=== PATIENT | male | born 1975 | race Caucasian/White ===

== ENCOUNTER 2020-06-29 10:12 | Inpatient (IN) | payer MEDICAID ==
[~2020-06-29] VITALS: Ht 175.3 cm; Wt 114.0 kg
[2020-06-29] VITALS (15 sets, daily range): BP systolic 138–155; BP diastolic 76–101
[2020-06-29] MEDS ORDERED: ondansetron/PF 4mg/2ml inj IV ONE (10:35)
[2020-06-29] MEDS ORDERED: normal saline 1000ML IV soln IVB ONE (10:35)
[2020-06-29] MEDS ORDERED: morphine 4 MG/ML inj SYRINge IV ONE (10:35)
--- NOTE | 2020-06-29 11:07 | NUR ---
PATIENT DOES NOT WANT NARCOTICS. HE HAS 6 YEARS OF RECOVERY. DISCUSSED WITH ZACH DYE. CHARLINE HOLD OFF ON PAIN MEDS UNTIL CT SCAN RESULTED
--- NOTE | 2020-06-29 11:09 | NUR ---
ZACH HEWITT WANT TO HOLD ON CHANGE THE MORPHINE TO TORADOL .WILL GIVE MEDS PER ZACH CORNELIUS.
[2020-06-29 12:08] LABS: ALANINE AMINOTRANSFERASE 67 U/L (12-78); ALBUMIN 4.5 G/DL (3.4-5.0); ALBUMIN/GLOBULIN RATIO 0.9 (1.1-1.5); ALKALINE PHOSPHATASE 101 IU/L (46-116); ANION GAP 11 (8-16); ASPARTATE AMINO TRANSFERASE 30 U/L (10-37); BILIRUBIN,TOTAL 1.4 MG/DL (0.1-1.0); BLOOD UREA NITROGEN 12 MG/DL (7-18); BUN/CREATININE RATIO 15.4 (5.4-32.0); CALCIUM 9.6 MG/DL (8.5-10.1); CHLORIDE 98 MMOL/L (99-107); CREATININE 0.78 MG/DL (0.60-1.10); GLUCOSE 110 MG/DL (70-104); LIPASE 54 U/L (73-393); POTASSIUM 3.9 MMOL/L (3.5-5.1); SODIUM 135 MMOL/L (135-145); TOTAL CARBON DIOXIDE 26.5 MMOL/L (24-32); TOTAL PROTEIN 9.5 G/DL (6.4-8.2); eGFR > 90 ML/MIN
--- NOTE | 2020-06-29 12:19 | NUR ---
plant and maintenance technician at bedside .pt in pain jodie garcia aware ,want to wait for morphine inj.
--- NOTE | 2020-06-29 12:35 | NUR ---
CLARIFIED WITH MARCELINA REGARDING PAIN MGT PER MARCELINA NO TORODOL NEED MORPHINE ,PT GOING FOR SX.
--- NOTE | 2020-06-29 12:54 | NUR ---
PATIENT IS A DIIFICULT IV START/STICK. I CALLED LAB AND LAB ONLY HAD ENOUGH BLOOD TO RUN A CHEMISTRY. I SPOKE TO ZACH DYE REGARDING LABS. I KAMINI LABS FROM THE IV THAT I STARTED IN HIS RIGHT HAND WHICH NEEDED A SLIGHT PULL AWAY FROM PATIENT AT THE HUB TO DRAW.
[2020-06-29 13:05] LABS: BASOPHILS # (AUTO) 0.1 X10'3 (0-0.2); BASOPHILS % (AUTO) 0.6 % (0-1); EOSINOPHILS % (AUTO) 0.1 % (0-6); HEMATOCRIT 44.3 % (42.0-52.0); HEMOGLOBIN 15.2 g/dl (14.0-17.9); LYMPHOCYTES # (AUTO) 1.7 X10'3 (1.1-4.8); MEAN CORPUSCULAR HEMOGLOBIN 30.8 PG (27.0-31.0); MEAN CORPUSCULAR HGB CONC 34.2 g/dL (33.0-36.5); MEAN CORPUSCULAR VOLUME 90.2 FL (78-98); MEAN PLATELET VOLUME 7.4 FL (7.4-10.4); MONOCYTES # (AUTO) 1.1 X10'3 (0-0.9); MONOCYTES % (AUTO) 6.5 % (2-12); NEUTROPHILS % (AUTO) 82.8 % (42-75); PLATELET COUNT 238 X10'3 (140-440); RED BLOOD COUNT 4.92 X10'6 (4.70-6.10); RED CELL DISTRIBUTION WIDTH 12.8 % (11.5-14.5); WHITE BLOOD COUNT 16.9 X10'3 (4.5-11.0)
[2020-06-29 13:08] LABS: CLARITY,URINE CLEAR (Clear); COLOR,URINE YELLOW (Yellow); GLUCOSE, URINE NEGATIVE (Neg); KETONES,URINE NEGATIVE (Neg); LEUKOCYTE ESTERASE ,URINE NEGATIVE (Neg); NITRITES, URINE NEGATIVE (Neg); OCCULT BLOOD,URINE NEGATIVE (Neg); PH,URINE 6.5 (4.8-8.0); PROTEIN,URINE 30 mg/dl (Neg)
[2020-06-29 13:09] LABS: UA COLLECTION TYPE VOIDED
[2020-06-29] MEDS ORDERED: piperacillin/tazo 3.375gm/50ml 50 ML IV ONE (13:10)
[2020-06-29 13:15] LABS: BACTERIA,URINE NONE SEEN /HPF (Neg); RBC,URINE 0-2 /HPF (0-2); WBC,URINE NONE SEEN /HPF (0-4)
[2020-06-29 13:16] LABS: MUCUS STRANDS FEW /LPF (Neg); SQUAMOUS EPITHELIAL CELL,UR NONE SEEN /LPF (FEW)
[2020-06-29] MEDS ORDERED: NO HOME MEDS (13:19)
[2020-06-29] MEDS ORDERED: ondansetron/PF 4mg/2ml inj IV PRN ×3 (13:55→18:50)
[2020-06-29] MEDS ORDERED: labetalol 20mg/4ml (5mg/ml) syringe IV PRN (13:55)
[2020-06-29] MEDS ORDERED: acetaminophen 1,000mg/100ml IV 100 ML IV PRN (13:55)
[2020-06-29] MEDS ORDERED: morphine 2 MG/ML inj. syringe IV PRN ×3 (13:55→14:40)
[2020-06-29] MEDS ORDERED: hydrALAZINE 20mg/ml inj. IV PRN (13:55)
[2020-06-29] MEDS ORDERED: proCHLORperazine 10 MG/2 ml inj IV PRN (13:55)
[2020-06-29] MEDS ORDERED: morphine 4 MG/ML inj SYRINge IV PRN (13:55)
[2020-06-29] MEDS ORDERED: BUPIVAcaine/PF 2.5 mg/ml (0.25%) 30ml vial ONE (13:55)
[2020-06-29] MEDS ORDERED: ringers solution, lacted 1,000 ML IV SCH (13:55)
[2020-06-29] MEDS ORDERED: meperidine/PF 25mg/ml syringe IV PRN ×3 (13:55)
[2020-06-29] MEDS ORDERED: cloNIDine 0.1 MG/24 HOUR patch (7 day patch) TD ONE (14:25)
--- NOTE | 2020-06-29 14:33 | NUR ---
PLACED CLONODINE PAATH ON LEFT SHOULDER FOR BP OF 188/102, WILL CONTINUE TO MONITOR, PT SLEEPING IN NO APPARENT DISTRESS
--- NOTE | 2020-06-29 14:35 | NUR ---
called lab to process type and screen and coags
[2020-06-29] MEDS ORDERED: magnesium hydroxide 30ml (MOM) UD suspension PO PRN (14:40)
[2020-06-29] MEDS ORDERED: acetaminophen 650mg rectal suppository RC PRN (14:40)
[2020-06-29] MEDS ORDERED: acetaminophen 325mg tablet PO PRN ×2 (14:40)
[2020-06-29] MEDS ORDERED: bisacodyl 10mg suppository rectal RC PRN (14:40)
[2020-06-29] MEDS ORDERED: potassium CL 10mEq/100ml bag 100 ML IV PRN ×2 (14:40)
[2020-06-29] MEDS ORDERED: magnesium 4gm in 100ml NS 100 ML IV PRN (14:40)
[2020-06-29] MEDS ORDERED: magnesium Cl slow-release 64mg tablet PO PRN (14:40)
[2020-06-29] MEDS ORDERED: HYDROcodone/acetaminophen 10/325mg tab PO PRN ×2 (14:40→18:50)
[2020-06-29] MEDS ORDERED: diphenhydrAMINE 25mg capsule PO PRN (14:40)
[2020-06-29] MEDS ORDERED: potassium Cl 20 mEq SR tablet PO PRN ×2 (14:40)
[2020-06-29] MEDS ORDERED: magnesium 2GM in 50ml NS 50 ML IV PRN (14:40)
[2020-06-29] MEDS ORDERED: HYDROcodone/acetaminophen 5mg/325mg tablet PO PRN (14:40)
[2020-06-29] MEDS ORDERED: mag hydrox/Alum hydrox/simeth 30ml oral suspension PO PRN (14:40)
[2020-06-29 14:53] LABS: PRE OP PROTIME 10.7 SECONDS (9.0-12.0)
[2020-06-29 15:12] LABS: HEMOGLOBIN A1C 5.7 % (4.5-6.2)
[2020-06-29] MEDS: normal saline 1000ml 1,000 ML IV SCH ×2 (15:20→20:11)
[2020-06-29] MEDS ORDERED: INDOCYANINE GREEN 25 MG/10 ML VIAL IV ONE (15:25)
[2020-06-29] MEDS: piperacillin/tazo 3.375gm/50ml 50 ML IV SCH (16:00)
[2020-06-29] MEDS ORDERED: sevoflurane 250ml liquid IH ONE (16:50)
[2020-06-29] MEDS ORDERED: famotidine/PF 10 mg/ml inj IV ONE (16:58)
[2020-06-29] MEDS ORDERED: midazolam 2 mg/2 ml injection ONE (17:03)
[2020-06-29] MEDS ORDERED: fentaNYL /PF 50mcg/ml 5ml ampule ONE (18:10)
[2020-06-29] MEDS ORDERED: ceFOXitin 1000 MG inj ONE ×2 (18:10)
[2020-06-29] MEDS ORDERED: ondansetron/PF 4mg/2ml inj ONE (18:10)
[2020-06-29] MEDS ORDERED: LIDOcaine 2% (20mg/ml) 5ml vial ONE (18:10)
[2020-06-29] MEDS ORDERED: dexamethasone sod phosphate 4mg/ml inj. ONE (18:10)
[2020-06-29] MEDS ORDERED: rocuronium 10mg/ml inj IV ONE ×2 (18:10)
[2020-06-29] MEDS ORDERED: propofol inj 20 ML IV ONE (18:10)
[2020-06-29] MEDS ORDERED: glycopyrrolate 0.2mg/ml inj ONE (18:29)
[2020-06-29] MEDS ORDERED: neostigmine methylsulfate 1 MG/ML 10ml vial ONE (18:29)
[2020-06-29] MEDS ORDERED: morphine 10mg/ml inj. ONE (18:48)
--- NOTE | 2020-06-29 18:51 | NUR ---
RECEIVED FROM OR VIA BED ACCOMPANIED BY ANESTHESIOLOGIST DR BOWLING, REPORT GIVEN. PT DROWSY BUT AROUSES WITH NO COMPLAINT OF PAIN. 218 GAUGE PIV R UA PATENT AND RUNNING NS AT 100 ML/HR. LG BANDAID X4 TO ABD CDI, FRANK DRAIN RLQ ABD TO SUCTION WITH SMALL AMOUNT OF SS DRAINAGE, ABD SOFT. LOPEZ, PPULSES PALPABLE, BRISK CAP REFILL, SKIN PINK AND WARM, VSS, SCDS APPLIED, RESTING COMFORTABLY.
[2020-06-29] MEDS: K and/or MAG REPLACEMENT MC SCH (20:00)
--- NOTE | 2020-06-29 20:00 | NUR ---
Patient in room [facility]. I have received report from disease education specialist Dot and had the opportunity to ask questions and assume patient care. Pt snoring, 02 via NC at 2L, postop VS started, delgado cordero with lap sites and FRANK to right w/ SS drainage. Addendum: 06/29/20 at 2201 by Julienne Farrell RN Amended: Links added.
--- NOTE | 2020-06-29 20:11 | NUR ---
TRANSPORTED VIA BED ACCOMPANIED BY MYSELF, REPORT GIVEN. PT DROWSY BUT AROUSES WITH NO COMPLAINT OF PAIN. 18 GAUGE PIV R UA PATENT AND RUNNING NS AT 100 ML/HR. LG BANDAID X4 TO ABD CDI, FRANK DRAIN RLQ ABD TO SUCTION WITH SMALL AMOUNT OF SS DRAINAGE, ABD SOFT. LOPEZ, PPULSES PALPABLE, BRISK CAP REFILL, SKIN PINK AND WARM, VSS, SCDS APPLIED, RESTING COMFORTABLY. LEFT IN CARE OF ROSANNE GARG.
[2020-06-30] VITALS: BP_SYST 130; BP_SYST 140; BP_DIAS 75; BP_DIAS 86
[2020-06-30] MEDS: heparin, porcine 5000 units/ml vial SQ SCH ×3 (00:14→19:22)
[2020-06-30] MEDS: ceFOXitin inj 1,000 MG in normal saline 100ml IV soln 100 ML IV SCH ×2 (00:16→07:58)
[2020-06-30] MEDS: piperacillin/tazo 3.375gm/50ml 50 ML IV SCH ×3 (01:44→17:09)
[2020-06-30 04:00] VITALS: BP 128/82
[2020-06-30 07:00] VITALS: BP 128/75
--- NOTE | 2020-06-30 07:23 | NUR ---
Patient in room [facility]. I have received report from Julienne GARG and had the opportunity to ask questions and assume patient care.
[2020-06-30 07:31] LABS: BASOPHILS % (AUTO) 0.2 % (0-1); EOSINOPHILS % (AUTO) 0 % (0-6); HEMATOCRIT 48.2 % (42.0-52.0); HEMOGLOBIN 16.6 g/dl (14.0-17.9); LYMPHOCYTES # (AUTO) 1.1 X10'3 (1.1-4.8); LYMPHOCYTES % (AUTO) 5.9 % (21-51); MEAN CORPUSCULAR HEMOGLOBIN 31.6 PG (27.0-31.0); MEAN CORPUSCULAR HGB CONC 34.3 g/dL (33.0-36.5); MEAN CORPUSCULAR VOLUME 91.9 FL (78-98); MEAN PLATELET VOLUME 7.9 FL (7.4-10.4); MONOCYTES # (AUTO) 1.3 X10'3 (0-0.9); MONOCYTES % (AUTO) 6.9 % (2-12); NEUTROPHILS # (AUTO) 16.5 X10'3 (1.8-7.7); PLATELET COUNT 193 X10'3 (140-440); RED BLOOD COUNT 5.25 X10'6 (4.70-6.10); RED CELL DISTRIBUTION WIDTH 12.8 % (11.5-14.5)
[2020-06-30 07:40] LABS: ALANINE AMINOTRANSFERASE 68 U/L (12-78); ALBUMIN 3.4 G/DL (3.4-5.0); ALBUMIN/GLOBULIN RATIO 0.8 (1.1-1.5); ALKALINE PHOSPHATASE 80 IU/L (46-116); ANION GAP 7 (8-16); ASPARTATE AMINO TRANSFERASE 36 U/L (10-37); BILIRUBIN,TOTAL 2.3 MG/DL (0.1-1.0); BLOOD UREA NITROGEN 18 MG/DL (7-18); BUN/CREATININE RATIO 19.8 (5.4-32.0); CALCIUM 8.4 MG/DL (8.5-10.1); CHLORIDE 102 MMOL/L (99-107); CHOLESTEROL 156 MG/DL (0-200); CREATININE 0.91 MG/DL (0.60-1.10); GLUCOSE 131 MG/DL (70-104); HDL CHOLESTEROL 80 MG/DL (35-60); LDL CHOLESTEROL 82 MG/DL (50-100); MAGNESIUM 2.1 MG/DL (1.5-2.4); PHOSPHORUS 3.6 MG/DL (2.3-4.5); POTASSIUM 5.1 MMOL/L (3.5-5.1); SODIUM 135 MMOL/L (135-145); TOTAL CARBON DIOXIDE 25.8 MMOL/L (24-32); TOTAL PROTEIN 7.7 G/DL (6.4-8.2); TRIGLYCERIDES 46 MG/DL (20-135); eGFR 90 ML/MIN
[2020-06-30] MEDS: K and/or MAG REPLACEMENT MC SCH ×2 (07:59→20:00)
[2020-06-30] MEDS ORDERED: pantoprazole 40 MG vial IV ONE (10:20)
[2020-06-30] MEDS: normal saline 1000ml 1,000 ML IV SCH ×2 (10:20→19:27)
[2020-06-30 12:10] VITALS: BP 127/76
[2020-06-30 13:04] LABS: CLARITY,URINE CLEAR (Clear); COLOR,URINE YELLOW (Yellow); GLUCOSE, URINE NEGATIVE (Neg); KETONES,URINE NEGATIVE (Neg); LEUKOCYTE ESTERASE ,URINE NEGATIVE (Neg); NITRITES, URINE NEGATIVE (Neg); OCCULT BLOOD,URINE NEGATIVE (Neg); PH,URINE 6.5 (4.8-8.0); PROTEIN,URINE NEGATIVE (Neg); UA COLLECTION TYPE CLN CATCH MIDSTREAM; UROBILINOGEN,URINE 0.2 E.U/dL (0.2-1.0)
[2020-06-30 13:17] LABS: URINE AMPHETAMINE SCREEN POSITIVE (Neg); URINE BARBITUATE SCREEN NEGATIVE (Neg); URINE BENZODIAZEPINES SCREEN POSITIVE (Neg); URINE CANNABINOID SCREEN NEGATIVE (Neg); URINE COCAINE SCREEN NEGATIVE (Neg); URINE METHADONE SCREEN NEGATIVE (Neg); URINE OPIATE SCREEN POSITIVE (Neg); URINE PHENCYCLIDINE SCREEN NEGATIVE (Neg)
[2020-06-30 18:30] VITALS: BP 119/65
--- NOTE | 2020-06-30 18:36 | NUR ---
Problems reprioritized. Patient report given, questions answered & plan of care reviewed with Russel GARG.
--- NOTE | 2020-06-30 18:43 | NUR ---
Patient in room [facility]. I have received report from BRITANY Jackson and had the opportunity to ask questions and assume patient care.
[2020-06-30] MEDS: lactobacillus rhamnosus 10,000 MMU CELLS/CAPSULE PO SCH (19:22)
[2020-07-01] VITALS: BP 138/77
[2020-07-01] MEDS: piperacillin/tazo 3.375gm/50ml 50 ML IV SCH ×2 (00:32→07:49)
[2020-07-01] MEDS: normal saline 1000ml 1,000 ML IV SCH (04:41)
[2020-07-01 05:49] LABS: BASOPHILS % (AUTO) 0.4 % (0-1); EOSINOPHILS # (AUTO) 0.1 X10'3 (0-0.9); HEMATOCRIT 41.6 % (42.0-52.0); HEMOGLOBIN 14.1 g/dl (14.0-17.9); LYMPHOCYTES # (AUTO) 2.3 X10'3 (1.1-4.8); LYMPHOCYTES % (AUTO) 25.3 % (21-51); MEAN CORPUSCULAR HEMOGLOBIN 31.1 PG (27.0-31.0); MEAN CORPUSCULAR HGB CONC 33.9 g/dL (33.0-36.5); MEAN CORPUSCULAR VOLUME 91.7 FL (78-98); MEAN PLATELET VOLUME 7.9 FL (7.4-10.4); MONOCYTES # (AUTO) 0.8 X10'3 (0-0.9); MONOCYTES % (AUTO) 8.7 % (2-12); NEUTROPHILS # (AUTO) 5.8 X10'3 (1.8-7.7); NEUTROPHILS % (AUTO) 64.6 % (42-75); PLATELET COUNT 208 X10'3 (140-440); RED BLOOD COUNT 4.54 X10'6 (4.70-6.10); RED CELL DISTRIBUTION WIDTH 13.4 % (11.5-14.5); WHITE BLOOD COUNT 9.1 X10'3 (4.5-11.0)
[2020-07-01 06:01] LABS: ALANINE AMINOTRANSFERASE 60 U/L (12-78); ALBUMIN 2.7 G/DL (3.4-5.0); ALBUMIN/GLOBULIN RATIO 0.7 (1.1-1.5); ALKALINE PHOSPHATASE 60 IU/L (46-116); ANION GAP 6 (8-16); ASPARTATE AMINO TRANSFERASE 28 U/L (10-37); BILIRUBIN,TOTAL 1.4 MG/DL (0.1-1.0); BLOOD UREA NITROGEN 17 MG/DL (7-18); BUN/CREATININE RATIO 18.9 (5.4-32.0); CALCIUM 8.3 MG/DL (8.5-10.1); CHLORIDE 108 MMOL/L (99-107); GLUCOSE 96 MG/DL (70-104); MAGNESIUM 2.3 MG/DL (1.5-2.4); PHOSPHORUS 2.5 MG/DL (2.3-4.5); POTASSIUM 4.1 MMOL/L (3.5-5.1); SODIUM 141 MMOL/L (135-145); TOTAL CARBON DIOXIDE 26.6 MMOL/L (24-32); TOTAL PROTEIN 6.5 G/DL (6.4-8.2); eGFR > 90 ML/MIN
--- NOTE | 2020-07-01 06:27 | NUR ---
Problems reprioritized. Patient report given, questions answered & plan of care reviewed with BRITANY Jackson.
--- NOTE | 2020-07-01 06:43 | NUR ---
Patient in room [facility]. I have received report from Kyree GARG and had the opportunity to ask questions and assume patient care.
[2020-07-01 07:00] VITALS: BP 123/73
[2020-07-01] MEDS: lactobacillus rhamnosus 10,000 MMU CELLS/CAPSULE PO SCH (07:49)
[2020-07-01] MEDS: heparin, porcine 5000 units/ml vial SQ SCH (07:50)
[2020-07-01] MEDS: K and/or MAG REPLACEMENT MC SCH (08:00)
[2020-07-01] MEDS ORDERED: pantoprazole 40 MG vial IV SCH (08:00)
[2020-07-01 11:00] VITALS: BP 129/78
--- NOTE | 2020-07-01 15:45 | NUR ---
Pt DC to home with mom & . Pt is A & O x4 and in no apparent distress. Pt verbalizes understanding of all DC orders. Pt states he understands wound care instructions but seems distracted with asked to explain instructions. Pt speaking to and mom about coming home and not paying attention to instructions. Pt packed his cpap and all of his belongings. Pt was wheeled out to the front where he was picked up by mom.
== END 2020-07-01 15:40 | disposition home or self-care (01) | DRG 263 ==
LOC: ER 10:12 → ED HOLD 14:40 → EDBEDREQ 15:19 → SUR 3N 20:00
PROVIDERS: ADMIT Family Medicine; ATTEND Internal Medicine
PROC: 8E0W4CZ Robotic Assisted Procedure of Trunk Region, Percutaneous Endoscopic Approach (ICD-10-PCS; 2020-06-29)
PROC: 0FT44ZZ Resection of Gallbladder, Percutaneous Endoscopic Approach (ICD-10-PCS; principal; 2020-06-29 16:50)
DX: K80.00 Calculus of gallbladder with acute cholecystitis without obstruction (principal); K82.A1 Gangrene of gallbladder in cholecystitis; Z87.442 Personal history of urinary calculi; Z20.828 Contact with and (suspected) exposure to other viral communicable diseases; Z87.891 Personal history of nicotine dependence; F15.10 Other stimulant abuse, uncomplicated; E66.9 Obesity, unspecified; K82.8 Other specified diseases of gallbladder; Z68.37 Body mass index [BMI] 37.0-37.9, adult
CPT/HCPCS: 36415; 71045; 74176; 76700; 80053; 80061; 80305; 81001; 81003; 83036; 83690; 83735; 84100; 85025; 85610; 85730; 86885; 86900; 86901; 87040; 87635; 93005; 96365; 96375; 97116; 97161; 97530; 99285; A4215; A4618; A6402; A7000; C9113; C9803; G0378; J0694; J1100; J1644; J2001; J2250; J2270; J2405; J2543; J2704; J2710; J3010; J3490; J7030

== ENCOUNTER 2021-05-19 20:17 | Emergency (ER) | payer MEDICAID ==
[~2021-05-19] VITALS: Ht 175.3 cm; Wt 100.0 kg
[~2021-05-19 20:17] MED LIST: NO HOME MEDS
[2021-05-19 20:19] VITALS: BP 155/104
[2021-05-20] MEDS ORDERED: CEPH-585 PO (00:23)
[2021-05-20] MEDS ORDERED: cephalexin 500mg capsule PO ONE (00:25)
[2021-05-20] MEDS ORDERED: TETanus/Pertussis (Acell)/Diphther VAC/PF (Tdap-Adult) 0.5ml syringe IMVAC ONE (00:25)
== END 2021-05-20 00:41 | disposition home or self-care (01) ==
LOC: ER 20:18
DX: S71.131A Puncture wound without foreign body, right thigh, initial encounter (principal); Z87.442 Personal history of urinary calculi; Z79.2 Long term (current) use of antibiotics; W11.XXXA Fall on and from ladder, initial encounter; Y93.89 Activity, other specified; Y92.89 Other specified places as the place of occurrence of the external cause; Y99.8 Other external cause status
CPT/HCPCS: 73552; 90471; 90715; 99283

== ENCOUNTER 2024-02-18 06:38 | Outpatient (CLI) | payer MEDICAID ==
[~2024-02-18 06:38] MED LIST changes: +GADOTERATE MEGLUMINE 7.5 MMOL/15 ML VIAL IV ONE; +LIDOcaine 1% (10mg/ml) 2ml vial ONE; +LIDOcaine 1% 30ml preserv. free vial ONE; +iohexol 300 MG/1 ML 50ml polymer ONE
[2024-02-18] MEDS ORDERED: LIDOcaine 1%/PF 5ML 10 MG/ML VIAL ONE (06:43)
== END 2024-02-18 23:59 | disposition home or self-care (01) ==
LOC: RAD 06:38 → EDSTATUS 07:00 → RAD 23:59
PROVIDERS: ATTEND Orthopaedic Surgery
DX: S43.431A Superior glenoid labrum lesion of right shoulder, initial encounter (principal); M75.112 Incomplete rotator cuff tear or rupture of left shoulder, not specified as traumatic; M19.011 Primary osteoarthritis, right shoulder; Z98.890 Other specified postprocedural states; X58.XXXA Exposure to other specified factors, initial encounter; Y93.89 Activity, other specified; Y92.89 Other specified places as the place of occurrence of the external cause; Y99.8 Other external cause status
CPT/HCPCS: 23350; 73222; 77002; A9575; J3490; Q9967; 73040

== ENCOUNTER 2024-11-11 14:37 | Emergency (ER) | payer MEDICAID ==
[~2024-11-11] VITALS: Ht 177.8 cm; Wt 127.0 kg
[~2024-11-11 14:37] MED LIST changes: -GADOTERATE MEGLUMINE 7.5 MMOL/15 ML VIAL IV ONE; -LIDOcaine 1% (10mg/ml) 2ml vial ONE; -LIDOcaine 1% 30ml preserv. free vial ONE; -iohexol 300 MG/1 ML 50ml polymer ONE
[2024-11-11 16:06] LABS: BASOPHILS # (AUTO) 0.1 X10'3 (0-0.2); EOSINOPHILS # (AUTO) 0.3 X10'3 (0-0.9); EOSINOPHILS % (AUTO) 3.7 % (0-6); HEMATOCRIT 54.1 % (42.0-52.0); LYMPHOCYTES % (AUTO) 23.7 % (21-51); MEAN CORPUSCULAR HEMOGLOBIN 30.1 PG (27.0-31.0); MEAN CORPUSCULAR HGB CONC 34.3 g/dL (33.0-36.5); MEAN CORPUSCULAR VOLUME 87.5 FL (78-98); MEAN PLATELET VOLUME 7.3 FL (7.4-10.4); MONOCYTES # (AUTO) 0.9 X10'3 (0-0.9); NEUTROPHILS # (AUTO) 5.2 X10'3 (1.8-7.7); NEUTROPHILS % (AUTO) 60.6 % (42-75); PLATELET COUNT 186 X10'3 (140-440); RED BLOOD COUNT 6.18 X10'6 (4.70-6.10); RED CELL DISTRIBUTION WIDTH 14.8 % (11.5-14.5); WHITE BLOOD COUNT 8.6 X10'3 (4.5-11.0)
[2024-11-11 16:10] LABS: ALBUMIN 3.7 G/DL (3.4-5.0); ANION GAP 6 (8-16); BLOOD UREA NITROGEN 14 MG/DL (7-18); BUN/CREATININE RATIO 19.4 (10.0-20.0); CALCIUM 8.7 MG/DL (8.5-10.1); CHLORIDE 105 MMOL/L (99-107); CREATININE 0.72 MG/DL (0.60-1.10); GLUCOSE 101 MG/DL (70-104); HEMOGLOBIN 18.6 g/dl (14.0-17.9); POTASSIUM 3.9 MMOL/L (3.5-5.1); SODIUM 138 MMOL/L (135-145); TOTAL CARBON DIOXIDE 26.6 MMOL/L (24-32); eCRCL 128 ML/MIN; eGFR > 90 ML/MIN
[2024-11-11 16:11] LABS: APTT 21 SECONDS (22-32); PROTHROMBIN TIME 10.2 SECONDS (9.0-12.0)
[2024-11-11] MEDS ORDERED: CYCL-1 PO (17:01)
[2024-11-11] MEDS ORDERED: ONDA-243 PO (17:01)
[2024-11-11] MEDS: ondansetron/PF 4mg/2ml inj IV ONE (17:10)
[2024-11-11] MEDS: ketorolac trometh 15mg/ml vial 15 MG/ML ML IV ONE (17:10)
[2024-11-11] MEDS: normal saline 1000ML IV soln IVB ONE (17:14)
[2024-11-11 17:19] VITALS: TEMP 98.5
[2024-11-11 18:22] VITALS: BP 137/82; PULSE 75; RESP 14; O2SAT 97
== END 2024-11-11 18:24 | disposition home or self-care (01) ==
LOC: ER 14:38
DX: S16.1XXA Strain of muscle, fascia and tendon at neck level, initial encounter (principal); S06.0X0A Concussion without loss of consciousness, initial encounter; S40.211A Abrasion of right shoulder, initial encounter; Z87.442 Personal history of urinary calculi; V89.2XXA Person injured in unspecified motor-vehicle accident, traffic, initial encounter; Y93.89 Activity, other specified; Y92.89 Other specified places as the place of occurrence of the external cause; Y99.8 Other external cause status
CPT/HCPCS: 36415; 70450; 71045; 80048; 85025; 85610; 85730; 93005; 96361; 96374; 96375; 99285; J1885; J2405; J7030

== ENCOUNTER 2025-01-11 13:44 | Outpatient (CLI) | payer MEDICAID ==
[~2025-01-11 13:44] MED LIST changes: +CYCL-1 PO; +ONDA-243 PO
--- NOTE | 2025-01-12 13:16 | RADIOLOGY REPORT ---
CLINICAL INFORMATION: Right shoulder strain. Impingement syndrome of right shoulder. Primary osteo arthritis of the right shoulder. TECHNIQUE: Multisequence multiplanar MRI images of the right shoulder were obtained without contrast . COMPARISON: Prior MR arthrogram dated 02/18/2024. FINDINGS: Acromioclavicular joint: There is moderate acromioclavicular hypertrophy and moderate edema. There is Type 2 acromion. Os acromiale noted with T2 hyperintense signal across the synchondrosis. Trace flui d in the subacromial / subdeltoid bursa. Rotator cuff tendons: Postsurgical changes of prior rotator cuff repair. Moderate tendinosis of the d istal supraspinatus and infraspinatus tendons. Suspected partial thickness interstitial tear of the s upraspinatus tendon insertional footprint, seen on the coronal PD fat-sat images, although not well c orrelated on additional sequences due to motion artifact. There are areas of bursal surface and artic ular surface fraying suspected in the distal supraspinatus and infraspinatus tendons. No full-thickne ss rotator cuff tear visualized. Subscapularis and teres minor tendons appear intact. Biceps tendon: Biceps tendon appears intact. Portions of the proximal long head biceps tendon are ob scured by motion artifact. Labrum: Fraying of the superior labrum. Intrasubstance T2 hyperintense signal in the posterior superi or labrum, suspected nondisplaced tear, appears similar to the prior exam. Bones: No fracture or focal marrow contusion. Cystic change and postsurgical changes of the greater t uberosity. Muscles: Normal muscle bulk. No atrophy. Other: Motion artifact limits evaluation. IMPRESSION: 1. Motion limited study. 2. Postsurgical changes of prior rotator cuff repair. Suspected partial-thickness interstitial tear o f the supraspinatus tendon insertional footprint, poorly evaluated due to motion artifact. Suspected areas of mild articular surface and bursal surface fraying of the supraspinatus and infraspinatus ten dons. No full-thickness rotator cuff tear. 3. Fraying of the superior labrum and suspected tear of the posterior superior labrum, unchanged. 4. Os acromiale moderate acromioclavicular hypertrophy. 5. Additional findings as detailed above.
== END 2025-01-11 23:59 | disposition home or self-care (01) ==
LOC: MRI02 13:44
PROVIDERS: ATTEND Orthopaedic Surgery
DX: S46.011A Strain of muscle(s) and tendon(s) of the rotator cuff of right shoulder, initial encounter (principal); M75.41 Impingement syndrome of right shoulder; Q68.8 Other specified congenital musculoskeletal deformities; M19.011 Primary osteoarthritis, right shoulder; S43.431A Superior glenoid labrum lesion of right shoulder, initial encounter; M75.21 Bicipital tendinitis, right shoulder; M89.311 Hypertrophy of bone, right shoulder; X58.XXXA Exposure to other specified factors, initial encounter; Y93.9 Activity, unspecified; Y92.89 Other specified places as the place of occurrence of the external cause; Y99.8 Other external cause status
CPT/HCPCS: 73221

== ENCOUNTER 2025-07-27 17:15 | Emergency (ER) | payer MEDICAID ==
[~2025-07-27] VITALS: Ht 177.8 cm; Wt 132.6 kg
[2025-07-27 17:19] VITALS: TEMP 98.5
--- NOTE | 2025-07-27 18:03 | Physician Documentation ---
History of Present Illness ~ Chief Complaint: Shortness of Breath Stated Complaint: SOB Time Seen by MD: 17:30 HPI 50-year-old male presents with one day of shortness of breath cough and productive phlegm. States that he had asthma when he was a kid and he does have a history of pneumonia. States that he is having difficulty breathing. States his primary concern is not the cold symptoms rather than difficulty catch in his breath States he does have COPD secondary to a long history of smoking but has long stopped smoking Day of Onset: Jul 27, 2025 Medication Reconciliation Allergies: Coded Allergies: No Known Allergies (Unverified , 11/11/24) Scheduled Azithromycin (Azithromycin), 1 TAB PO UD Prednisone (Prednisone), 1 TAB PO BID Scheduled PRN Cyclobenzaprine* (Cyclobenzaprine*), 1 TAB PO Q8H PRN for pain ONDANSETRON ODT 4mg tablet (Ondansetron Odt), 1 TABLET PO Q6H PRN for nausea/vomiting albuterol inhaler (Pro-Air Inhaler), 2 PUFFS INH Q4HPRN PRN for wheezing Miscellaneous Medications Home Med List (No Home Medications), (Reported) Past Medical History Past Medical History: Kidney Stones, *MUSCULOSKELETAL* Past Surgical History: noncontributory Drug Use: none Lives In: Home Review of Systems All Other Systems at this time: Reviewed and Negative Physical Exam Vital Signs: Temperature: 98.5, Source: Temporal, Heart Rate: 97, Respiratory Rate: 15, BP: 164/99, Pulse Oximetry: 98, Weight: 132.600 Physical Exam General: Alert, no apparent distress. Neck: Full range of motion. Respiratory: Coarse lung sounds bilaterally with wheezing Chest: No accessory muscle use. Cardiovascular: Regular rate and rhythm, no murmurs. Neurologic: Oriented x4. Psychiatric: Normal mood and affect. Skin: Normal color, warm and dry. No edema, no ecchymosis. Progress Results/Orders Results/Orders Orders - KERA AUSTIN ASSISTANT KITCHEN MANAGER Chest,Single View (07/27/25 18:12) Svn Treatment (07/27/25 ) Completed Orders - KERA AUSTIN ASSISTANT KITCHEN MANAGER Chest,Single View (07/27/25 18:12) Ipratropium/Albuterol Nebule (Ipratrop/A (07/27/25 18:15) Dexamethasone Inj (Decadron 10mg/Ml Inj) (07/27/25 18:19) Medications Received in ER Medications (Trade) Dose Ordered Sig/Benoit Route PRN Reason Start Time Stop Time Status Last Admin Dose Admin (ipratrop/ albuterol 0.5-3(2.5) MG/3ml nebule) 3 ml ONCE ONCE NEB 07/27/25 18:15 07/27/25 18:16 DC 07/27/25 18:24 3 ML (Decadron 10mg/ ml inj) 10 mg ONCE STAT PO 07/27/25 18:19 07/27/25 18:21 DC 07/27/25 18:36 10 MG Vital Signs 07/27/25 07/27/25 07/27/25 07/27/25 17:19 18:24 18:29 19:35 Temp 98.5 Pulse 97 88 92 90 Resp 15 17 17 18 B/P (MAP) 164/99 160/92 Pulse Ox 98 95 99 O2 Delivery Room Air* Room Air* O2 Flow Rate 0 0 FiO2 21 21 Medical Decision Making Additional information obtaine: old records Findings Patient presented initially with rare coarse lung sounds and difficulty getting a full breath of air cp dexamethasone and an SVN treatment and reported largely improved symptoms based on his history of COPD I feel it is prudent to place him on a Z-Grzegorz and a short dose of steroids to prevent any worsening symptoms Heart Score: 4 Differential Dx:Considerations: Include: anxiety, asthma, bronchitis, cardiogenic shock, CHF, COPD, dysrhythmia, hypertension, accelerated, hypertension, essential, hypertension, malignant, hyperventilation, hyponatremia, myocardial infarction, panic attack, pneumonia, pneumonitis, pneumothorax, PSVT, pulmonary embolism, respiratory distress, respiratory failure, sinusitis, upper resp. infection, other Departure Disposition: HOME / SELF CARE / HOMELESS Impression: Primary Impression: Viral lower respiratory infection Additional Impression: Bronchitis Condition: Stable Discharge Instructions: Bronchitis, Upper Respiratory Infection, Adult Referrals: NO PRIMARY CARE PROVIDER (PCP) Prescriptions albuterol inhaler (Pro-Air Inhaler) 8.5 Gm Inhaler 2 PUFFS INH Q4HPRN PRN for wheezing for 30 Days, #18 GM Prov: KERA AUSTIN ASSISTANT KITCHEN MANAGER 07/27/25 Prednisone (Prednisone) 10 Mg Tablet 1 TAB PO BID for 5 Days, #10 TAB Prov: KERA AUSTIN NP 07/27/25 Azithromycin (Azithromycin) 250 Mg Tablet 1 TAB PO UD for 5 Days, #6 TAB 2 the first day followed by 1 for days 2-5 Prov: KERA AUSTIN NP 07/27/25 Education Educated: Patient Educated regarding: diagnosis Signature Scribe Signature: irina Attestation: Scribed for Kera Austin Tube Builder Airplane by Kera Carrasquillo NP . 07/27/25 18:52 KERA AUSTIN NP Jul 27, 2025 18:03
[2025-07-27 18:24] VITALS: PULSE 88; RESP 17; O2SAT 95
[2025-07-27] MEDS: ipratropium/albuterol 3ml nebule NEB ONE (18:24)
[2025-07-27 18:29] VITALS: PULSE 92; RESP 17
[2025-07-27] MEDS: dexamethasone sod phosphate 10mg/ml inj PO STA (18:36)
--- NOTE | 2025-07-27 18:36 | RADIOLOGY REPORT ---
EXAM: DI CHEST,SINGLE VIEW TECHNIQUE: Single frontal chest radiograph CLINICAL HISTORY: cough COMPARISON: DI CHEST,SINGLE VIEW on DOS: 11/11/24, CHEST,SINGLE VIEW on DOS: 06/29/20 FINDINGS/IMPRESSION: The lungs are clear. The cardiomediastinal silhouette is unchanged. No pleural effusion or pneumothorax. No acute osseous abnormality.
[2025-07-27] MEDS ORDERED: AZIT250T12 PO (18:51)
[2025-07-27] MEDS ORDERED: PRED10TA23 PO (18:51)
[2025-07-27] MEDS ORDERED: ALBU8HFA INH (18:51)
[2025-07-27 19:35] VITALS: BP 160/92; PULSE 90; RESP 18; O2SAT 99
== END 2025-07-27 19:35 | disposition home or self-care (01) ==
LOC: ER 17:15
DX: J20.9 Acute bronchitis, unspecified (principal); J44.9 Chronic obstructive pulmonary disease, unspecified; Z87.442 Personal history of urinary calculi; Z87.01 Personal history of pneumonia (recurrent); Z79.899 Other long term (current) drug therapy
CPT/HCPCS: 71045; 94640; 99283; J1100; 94760